=== PATIENT | male | born 1930 | race Caucasian/White ===

== ENCOUNTER 2021-01-31 06:16 | Day surgery (SDC) | payer OTHER ==
[~2021-01-31] VITALS: Ht 193 cm; Wt 99.8 kg
[~2021-01-31 06:16] MED LIST: DILT120C44 PO; GABA300C10 PO; LISI20TA28 PO
[2021-01-31] MEDS ORDERED: LIDOCAINE 1% HCL (LOCAL ANESTH.) INJ 20ML MDV ONE (06:56)
[2021-01-31] MEDS ORDERED: SUCCINYLCHOLINE CHLORIDE 20 MG/ML 10ML VIAL IV ONE (06:56)
[2021-01-31] MEDS ORDERED: CLINDAMYCIN 600MG IV 50 ML IV ONE (07:06)
[2021-01-31] MEDS ORDERED: LIDOCAINE W/ EPINEPHRINE 2% INJ 20ML VIAL ONE (07:18)
[2021-01-31] MEDS ORDERED: BUPIVACAINE 0.25% INJ 50ML VIAL ONE (07:18)
[2021-01-31] MEDS ORDERED: VANCOMYCIN HCL 1000 MG VL ONE (07:19)
[2021-01-31] MEDS ORDERED: fentaNYL CITRATE 100 MCG/2 ML VL ONE (07:21)
[2021-01-31] MEDS ORDERED: SODIUM CHLORIDE LOCK 10 ML ONE (07:21)
[2021-01-31] MEDS ORDERED: ONDANSETRON HCL 4 MG/2 ML VIAL ONE (07:21)
[2021-01-31] MEDS ORDERED: PROPOFOL 10 MG/ML 20 ML IV ONE (07:21)
[2021-01-31] MEDS ORDERED: MIDAZOLAM HCL 2MG/2ML 2ml VIAL (1mg/ml) ONE (07:21)
[2021-01-31] MEDS ORDERED: MORPHINE SULF PF 2 MG/2 ML SYRG ONE (07:43)
[2021-01-31] MEDS ORDERED: ACCU-CHEK COMFORT CURVE STRIP VI ONE (07:45)
[2021-01-31] MEDS ORDERED: MORPHINE SULFATE 4 MG/ML SYR/VIAL IV PRN (07:45)
[2021-01-31] MEDS ORDERED: METOCLOPRAMIDE HCL 5MG/ml INJ 2ml VIAL IV PRN (07:45)
[2021-01-31] MEDS ORDERED: HYDROmorphone HCL 2 MG/ML VL IV PRN (07:45)
[2021-01-31 10:05] VITALS: BP 122/65
== END 2021-01-31 10:40 | disposition home or self-care (01) ==
LOC: SUR 06:16
PROVIDERS: ATTEND Anesthesiology Pain Medicine
DX: M54.5 Low back pain (principal); M48.062 Spinal stenosis, lumbar region with neurogenic claudication; I10 Essential (primary) hypertension; J44.9 Chronic obstructive pulmonary disease, unspecified; G62.9 Polyneuropathy, unspecified; I49.9 Cardiac arrhythmia, unspecified; E11.40 Type 2 diabetes mellitus with diabetic neuropathy, unspecified; Z88.0 Allergy status to penicillin; Z98.890 Other specified postprocedural states; Z79.899 Other long term (current) drug therapy; Z20.822 Contact with and (suspected) exposure to COVID-19
CPT/HCPCS: 22869; 22870; 72100; C1821; J0330; J2001; J2250; J2270; J2405; J2704; J3010; J3370; J3490; U0003; 76001